=== PATIENT | female | born 1945 | race Caucasian/White ===

== ENCOUNTER 2022-05-05 10:39 | Outpatient (CLI) | payer MEDICARE, OTHER | END 2022-05-05 10:40 | disposition home or self-care (01) | LOC: CSHMRI 10:39 | PROVIDERS: ATTEND Nurse Practitioner Family | DX: M48.062 Spinal stenosis, lumbar region with neurogenic claudication (principal); M47.816 Spondylosis without myelopathy or radiculopathy, lumbar region | CPT/HCPCS: 72100; 72148 ==